=== PATIENT | male | born 1935 | race Caucasian/White ===

== ENCOUNTER → 2018-01-16 05:34 | Outpatient (REF) | payer MEDICARE, SELFPAY ==
[2018-01-16 07:54] LABS: Hematocrit 39.1 % (40-54); Hemoglobin 11.8 g/dl (13.0-16.5); Mean Corp Hgb Conc 30.2 g/gl (32-36); Mean Corpuscular Hgb 26.3 pg (27.0-32.0); Mean Corpuscular Volume 87.3 fL (80-94); Mean Platelet Vol. 9.8 fl (6.2-12.0); Platelet Count 203 K/mm3 (150-450); RBC Distribution Width CV 14.8 % (11.6-14.6); RBC Distribution Width SD 47.4 fl (35.1-43.9); Red Blood Count 4.48 M/mm3 (4.6-6.2); White Blood Count 7.1 K/mm3 (4.4-11.0)
[2018-01-16 08:04] LABS: Scan Indicated on CBC? Y/N NO
[2018-01-16 08:16] LABS: ALB/GLOB Ratio 0.8 RATIO (0.9-2.4); AST(SGOT) 11 U/L (15-37); Alanine Aminotransfer ALT/SGPT 9 U/L (16-61); Albumin, Serum 3.1 g/dL (3.2-5.0); Alkaline Phosphatase 134 U/L (45-117); Anion Gap 7 (5-15); BUN 19 mg/dL (7-18); BUN/Creat Ratio 14.6 RATIO (10-20); Calcium,Total 8.1 mg/dL (8.5-10.1); Chloride 106 mmol/L (98-107); EST Glomerular Filtration Rate 56 mL/min (>60); Est Glom Filt Rate - Afr Amer 68 mL/min (>60); Globulin 3.8 g/dL (2.2-4.2); Glucose 76 mg/dL (74-106); Potassium 3.9 mmol/L (3.5-5.1); Protein, Total 6.9 g/dL (6.4-8.2); Sodium Level 142 mmol/L (136-145); Thyroid Stim Hormone (TSH) 1.46 uIU/mL (0.358-3.74)
== END ==
LOC: OLS.ACW400 05:34
PROVIDERS: Visit Provider Internal Medicine
DX: I25.10 Atherosclerotic heart disease of native coronary artery without angina pectoris (principal); R27.9 Unspecified lack of coordination; R41.841 Cognitive communication deficit; R48.9 Unspecified symbolic dysfunctions; R13.12 Dysphagia, oropharyngeal phase
CPT/HCPCS: 36415; 80053; 84443; 85027

== ENCOUNTER → 2018-04-22 08:00 | Outpatient (REF) | payer MEDICARE, SELFPAY ==
[2018-04-22 12:14] LABS: Hematocrit 30.1 % (40-54); Hemoglobin 8.8 g/dl (13.0-16.5); Mean Corp Hgb Conc 29.2 g/gl (32-36); Mean Corpuscular Hgb 24.4 pg (27.0-32.0); Mean Corpuscular Volume 83.4 fL (80-94); Platelet Count 123 K/mm3 (150-450); RBC Distribution Width CV 16.1 % (11.6-14.6); RBC Distribution Width SD 49.3 fl (35.1-43.9); Red Blood Count 3.61 M/mm3 (4.6-6.2); Scan Indicated on CBC? Y/N NO; White Blood Count 9.9 K/mm3 (4.4-11.0)
[2018-04-22 12:32] LABS: Anion Gap 4 (5-15); BUN 37 mg/dL (7-18); Calcium,Total 7.7 mg/dL (8.5-10.1); Chloride 107 mmol/L (98-107); Creatinine, Serum 2.06 mg/dL (0.70-1.30); EST Glomerular Filtration Rate 33 mL/min (>60); Est Glom Filt Rate - Afr Amer 40 mL/min (>60); Glucose 147 mg/dL (74-106); Potassium 4.6 mmol/L (3.5-5.1); Sodium Level 142 mmol/L (136-145)
== END ==
LOC: OLS.ACW400 08:00
PROVIDERS: Visit Provider Internal Medicine
DX: I25.10 Atherosclerotic heart disease of native coronary artery without angina pectoris (principal); R27.9 Unspecified lack of coordination; R41.841 Cognitive communication deficit; R48.9 Unspecified symbolic dysfunctions; R13.12 Dysphagia, oropharyngeal phase
CPT/HCPCS: 36415; 80048; 85027

== ENCOUNTER → 2018-04-23 05:00 | Outpatient (REF) | payer MEDICARE, SELFPAY ==
[2018-04-23 08:45] LABS: Ferritin 17 ng/mL (26-388); Iron 13 ug/dL (65-175); Iron Binding Capacity,Total 362 ug/dL (250-450)
== END ==
LOC: OLS.ACW400 05:00
PROVIDERS: Visit Provider Internal Medicine
DX: I25.10 Atherosclerotic heart disease of native coronary artery without angina pectoris (principal); R27.9 Unspecified lack of coordination; R41.841 Cognitive communication deficit; R48.9 Unspecified symbolic dysfunctions; R13.12 Dysphagia, oropharyngeal phase
CPT/HCPCS: 36415; 82728; 83540; 83550